=== PATIENT | male | born 1950 | race Caucasian/White ===

== ENCOUNTER 2023-12-26 14:25 | Inpatient (IN) | payer OTHER ==
[~2023-12-26] VITALS: Ht 157.5 cm; Wt 116.1 kg
[2023-12-26 14:39] VITALS: BP 114/74; PULSE 112; RESP 16; TEMP 98; O2SAT 96
[2023-12-26] MEDS: ONDANSETRON 4 MG/2 ML VIAL IVP ONE (15:46)
[2023-12-26] MEDS: fentaNYL citrate 0.05 MG/ML VIAL IVP ONE (15:47)
[2023-12-26] MEDS: NACL 0.9% 1,000 ML IV ONE (15:47)
[2023-12-26 15:56] LABS: BASOPHILS % (AUTO) 0.1 % (0.0-2.0); EOSINOPHILS % (AUTO) 0.2 % (0.0-4.0); HEMATOCRIT 30.3 % (36-52); LYMPHOCYTES # (AUTO) 1.8 K/uL (2.0-11.5); LYMPHOCYTES % (AUTO) 15.4 % (20.5-51.1); MEAN CORPUSCULAR HEMOGLOBIN 25 pg (27-31); MEAN CORPUSCULAR HGB CONC 33 g/dL (33-37); MONOCYTES # (AUTO) 1.2 K/uL (0.8-1.0); NEUTROPHILS # (AUTO) 8.6 K/uL (1.8-7.7); NEUTROPHILS % (AUTO) 74.3 % (42.2-75.2); PLATELET COUNT (AUTO) 378 K/uL (140-450); RED BLOOD CELL COUNT(AUTO) 3.93 MIL/uL (4.20-6.10); RED CELL DISTRIBUTION WIDTH 19.1 % (11.6-13.7); WHITE BLOOD COUNT (AUTO) 11.6 K/uL (4.8-10.8)
[2023-12-26 16:18] LABS: INR 1.07 (0.8-1.2); PROTHROMBIN TIME 11.2 secs (10.8-13.4)
[2023-12-26 16:20] LABS: ANION GAP 13.3 (8-16); CALCIUM 9.1 mg/dL (8.5-10.1); CARBON DIOXIDE 25.3 mmol/L (21-32); CHLORIDE 95 mmol/L (98-107); CREATININE 1.1 mg/dL (0.6-1.3); GLUCOSE 89 mg/dL (74-106); POTASSIUM 3.6 mmol/L (3.5-5.1); SODIUM SERUM 130 mmol/L (136-145); UREA NITROGEN, BLOOD 14 mg/dL (7-18)
[2023-12-26 16:27] LABS: ALANINE AMINOTRANSFERASE 11 U/L (12-78); ALBUMIN 2.8 g/dL (3.4-5.0); ALKALINE PHOSPHATASE 117 U/L (50-136); ASPARTATE AMINOTRANSFERASE 23 U/L (15-37); BILIRUBIN,DIRECT 0.2 mg/dL (0.0-0.3); LIPASE 67 U/L (16-77); TOTAL BILIRUBIN 0.4 mg/dL (0.0-1.0); TOTAL PROTEIN, SERUM 7.3 g/dL (6.4-8.2)
[2023-12-26 17:24] VITALS: O2SAT 96
[2023-12-26 17:38] LABS: APPEARANCE,URINE CLEAR (CLEAR); BILIRUBIN,URINE NEGATIVE (NEGATIVE); BLOOD, URINE NEGATIVE (NEGATIVE); COLOR,URINE YELLOW (YELLOW); LEUKOCYTE ESTERASE ,URINE NEGATIVE (NEGATIVE); NITRITE, URINE NEGATIVE (NEGATIVE); PROTEIN,URINE NEGATIVE (NEGATIVE); UGLUCOSE NEGATIVE (NEGATIVE)
[2023-12-26] MEDS: HYDROmorphone PFS 2 MG/ML SYR IVP ONE ×2 (17:55→19:45)
[2023-12-26] MEDS ORDERED: POTASSIUM CHLORIDE 10 MEQ TABER PO PRN (19:40)
[2023-12-26] MEDS ORDERED: METOCLOPRAMIDE 10 MG/2 ML INJ VIAL IVP PRN (19:40)
[2023-12-26] MEDS ORDERED: MORPHINE SULFATE 4 MG/ML SYR IVP PRN (19:40)
[2023-12-26] MEDS: DEXT 5% /NACL 0.9% 1,000 ML IV SCH (20:01)
[2023-12-26] MEDS ORDERED: OMEP40EC23 PO (21:01)
[2023-12-26] MEDS ORDERED: LAMO100T19 PO (21:01)
[2023-12-26] MEDS ORDERED: ARIP15TA1 PO (21:01)
[2023-12-26] MEDS ORDERED: ASPI-1822 PO (21:01)
[2023-12-26] MEDS ORDERED: CARB1TER9 PO (21:01)
[2023-12-26] MEDS ORDERED: LISI20TA29 PO (21:01)
[2023-12-26] MEDS ORDERED: ATOR40TA PO (21:01)
[2023-12-26] MEDS ORDERED: CLOP300T2 PO (21:01)
[2023-12-26] MEDS ORDERED: FURO-572 PO (21:01)
[2023-12-26] MEDS ORDERED: BUS5 PO (21:01)
[2023-12-26] MEDS ORDERED: AMLO10TA PO (21:01)
[2023-12-26 22:00] VITALS: RESP 14; O2SAT 94
[2023-12-27 00:53] VITALS: RESP 19; O2SAT 90
[2023-12-27] MEDS: ONDANSETRON 4 MG/2 ML VIAL IVP PRN (02:02)
[2023-12-27 04:00] VITALS: BP 133/77; PULSE 91; RESP 17; TEMP 97.9; O2SAT 91
[2023-12-27] MEDS: HYDROcodone/APAP 5/325 MG 1 TAB TAB PO PRN (04:40)
[2023-12-27 06:38] LABS: EOSINOPHILS % (AUTO) 0.4 % (0.0-4.0); HEMATOCRIT 29.2 % (36-52); HEMOGLOBIN 9.7 g/dL (12.0-18.0); LYMPHOCYTES % (AUTO) 17.3 % (20.5-51.1); MEAN CORPUSCULAR HEMOGLOBIN 26 pg (27-31); MEAN CORPUSCULAR HGB CONC 33 g/dL (33-37); MONOCYTES # (AUTO) 1.1 K/uL (0.8-1.0); MONOCYTES % (AUTO) 9.4 % (1.7-9.3); NEUTROPHILS # (AUTO) 8.5 K/uL (1.8-7.7); NEUTROPHILS % (AUTO) 72.9 % (42.2-75.2); PLATELET COUNT (AUTO) 364 K/uL (140-450); RED BLOOD CELL COUNT(AUTO) 3.79 MIL/uL (4.20-6.10); RED CELL DISTRIBUTION WIDTH 18.8 % (11.6-13.7); WHITE BLOOD COUNT (AUTO) 11.7 K/uL (4.8-10.8)
[2023-12-27 07:13] LABS: ANION GAP 12.4 (8-16); CALCIUM 8.3 mg/dL (8.5-10.1); CARBON DIOXIDE 25.2 mmol/L (21-32); CHLORIDE 98 mmol/L (98-107); GLUCOSE 101 mg/dL (74-106); POTASSIUM 3.6 mmol/L (3.5-5.1); SODIUM SERUM 132 mmol/L (136-145); UREA NITROGEN, BLOOD 14 mg/dL (7-18)
[2023-12-27 08:00] VITALS: BP 129/66; PULSE 68; PULSE 96; RESP 18; RESP 20; TEMP 98.7; O2SAT 96; O2SAT 99
[2023-12-27] MEDS: DOCUSATE SODIUM 100 MG GELCAP PO SCH (10:40)
[2023-12-27] MEDS: LORazepam 1 MG TAB PO PRN (15:44)
[2023-12-27 16:00] VITALS: BP 135/75; PULSE 99; RESP 18; TEMP 97.8; O2SAT 98
[2023-12-27 20:00] VITALS: BP 147/79; PULSE 107; PULSE 71; RESP 18; RESP 19; TEMP 97.8; O2SAT 94; O2SAT 98
[2023-12-27] MEDS: MEDS-TO-BEDS MC SCH (20:28)
[2023-12-28 04:00] VITALS: BP 151/76; PULSE 105; RESP 18; TEMP 97.6; O2SAT 94
[2023-12-28 06:41] LABS: BASOPHILS % (AUTO) 0.1 % (0.0-2.0); EOSINOPHILS # (AUTO) 0.2 K/uL (0-0.4); EOSINOPHILS % (AUTO) 1.5 % (0.0-4.0); HEMATOCRIT 29.6 % (36-52); HEMOGLOBIN 9.7 g/dL (12.0-18.0); LYMPHOCYTES # (AUTO) 2.9 K/uL (2.0-11.5); LYMPHOCYTES % (AUTO) 22.7 % (20.5-51.1); MEAN CORPUSCULAR HEMOGLOBIN 25 pg (27-31); MEAN CORPUSCULAR HGB CONC 33 g/dL (33-37); MEAN CORPUSCULAR VOLUME 77.4 fL (80-94); MONOCYTES # (AUTO) 1.6 K/uL (0.8-1.0); MONOCYTES % (AUTO) 12.6 % (1.7-9.3); NEUTROPHILS % (AUTO) 63.1 % (42.2-75.2); PLATELET COUNT (AUTO) 375 K/uL (140-450); RED BLOOD CELL COUNT(AUTO) 3.82 MIL/uL (4.20-6.10); RED CELL DISTRIBUTION WIDTH 18.8 % (11.6-13.7); WHITE BLOOD COUNT (AUTO) 12.7 K/uL (4.8-10.8)
[2023-12-28 06:56] LABS: ANION GAP 11.3 (8-16); CALCIUM 8.1 mg/dL (8.5-10.1); CHLORIDE 100 mmol/L (98-107); CREATININE 0.9 mg/dL (0.6-1.3); GLUCOSE 89 mg/dL (74-106); POTASSIUM 3.3 mmol/L (3.5-5.1); SODIUM SERUM 134 mmol/L (136-145); UREA NITROGEN, BLOOD 12 mg/dL (7-18)
[2023-12-28 07:49] VITALS: PULSE 72; RESP 20; O2SAT 99
[2023-12-28 08:00] VITALS: BP 126/71; PULSE 105; RESP 18; TEMP 97.5; O2SAT 94
[2023-12-28] MEDS: POTASSIUM CHLORIDE 20% 40 MEQ/15 ML UDC PO SCH (11:17)
[2023-12-28 16:00] VITALS: BP 159/83; PULSE 115; RESP 18; TEMP 97.6; O2SAT 94
[2023-12-28 20:00] VITALS: BP 137/77; PULSE 110; PULSE 113; RESP 18; RESP 20; TEMP 97.9; O2SAT 93
[2023-12-29 04:00] VITALS: BP 137/78; PULSE 110; RESP 20; TEMP 97.1; O2SAT 93
[2023-12-29 07:26] LABS: BASOPHILS % (AUTO) 0.1 % (0.0-2.0); EOSINOPHILS # (AUTO) 0.1 K/uL (0-0.4); EOSINOPHILS % (AUTO) 0.9 % (0.0-4.0); HEMATOCRIT 31.3 % (36-52); HEMOGLOBIN 10.3 g/dL (12.0-18.0); LYMPHOCYTES # (AUTO) 3.4 K/uL (2.0-11.5); LYMPHOCYTES % (AUTO) 22.7 % (20.5-51.1); MEAN CORPUSCULAR HEMOGLOBIN 25 pg (27-31); MEAN CORPUSCULAR HGB CONC 33 g/dL (33-37); MEAN CORPUSCULAR VOLUME 77.5 fL (80-94); MONOCYTES # (AUTO) 1.8 K/uL (0.8-1.0); MONOCYTES % (AUTO) 11.9 % (1.7-9.3); NEUTROPHILS # (AUTO) 9.6 K/uL (1.8-7.7); NEUTROPHILS % (AUTO) 64.4 % (42.2-75.2); PLATELET COUNT (AUTO) 394 K/uL (140-450); RED BLOOD CELL COUNT(AUTO) 4.04 MIL/uL (4.20-6.10); RED CELL DISTRIBUTION WIDTH 19.7 % (11.6-13.7)
[2023-12-29 07:38] LABS: ANION GAP 12.3 (8-16); CALCIUM 8.2 mg/dL (8.5-10.1); CARBON DIOXIDE 25.9 mmol/L (21-32); CHLORIDE 102 mmol/L (98-107); CREATININE 0.9 mg/dL (0.6-1.3); GLUCOSE 99 mg/dL (74-106); POTASSIUM 3.2 mmol/L (3.5-5.1); SODIUM SERUM 137 mmol/L (136-145); UREA NITROGEN, BLOOD 11 mg/dL (7-18)
[2023-12-29 08:00] VITALS: BP 137/92; PULSE 111; RESP 20; TEMP 97.3; O2SAT 95
[2023-12-29 12:00] VITALS: BP 134/73; PULSE 101; RESP 18; TEMP 97.5; O2SAT 94
[2023-12-29] MEDS: POTASSIUM CHLORIDE 40 MEQ, LIDOCAINE 1% 25 MG in NACL 0.9% 250 ML IV ONE (14:19)
[2023-12-29 16:00] VITALS: BP 118/82; PULSE 107; RESP 18; TEMP 98.2; O2SAT 96
[2023-12-29] MEDS: KETOROLAC 15 MG/ML VIAL IVP PRN (18:19)
[2023-12-29 20:00] VITALS: BP 121/82; PULSE 118; RESP 16; TEMP 98.4; O2SAT 95
[2023-12-30 04:00] VITALS: BP 139/78; PULSE 120; RESP 20; TEMP 97.6; O2SAT 95
[2023-12-30 04:13] LABS: BASOPHILS # (AUTO) 0.1 K/uL (0.00-0.22); BASOPHILS % (AUTO) 0.5 % (0.0-2.0); EOSINOPHILS # (AUTO) 0.1 K/uL (0-0.4); EOSINOPHILS % (AUTO) 0.8 % (0.0-4.0); HEMATOCRIT 30.6 % (36-52); HEMOGLOBIN 10.1 g/dL (12.0-18.0); LYMPHOCYTES # (AUTO) 2.3 K/uL (2.0-11.5); LYMPHOCYTES % (AUTO) 19.7 % (20.5-51.1); MEAN CORPUSCULAR HEMOGLOBIN 26 pg (27-31); MEAN CORPUSCULAR HGB CONC 33 g/dL (33-37); MEAN CORPUSCULAR VOLUME 77.1 fL (80-94); MONOCYTES # (AUTO) 1.4 K/uL (0.8-1.0); MONOCYTES % (AUTO) 12.2 % (1.7-9.3); NEUTROPHILS # (AUTO) 7.9 K/uL (1.8-7.7); NEUTROPHILS % (AUTO) 66.8 % (42.2-75.2); PLATELET COUNT (AUTO) 421 K/uL (140-450); RED BLOOD CELL COUNT(AUTO) 3.96 MIL/uL (4.20-6.10); RED CELL DISTRIBUTION WIDTH 19.4 % (11.6-13.7); WHITE BLOOD COUNT (AUTO) 11.8 K/uL (4.8-10.8)
[2023-12-30 05:14] LABS: ANION GAP 12.1 (8-16); CALCIUM 8.8 mg/dL (8.5-10.1); CARBON DIOXIDE 26.2 mmol/L (21-32); CHLORIDE 106 mmol/L (98-107); CREATININE 1.2 mg/dL (0.6-1.3); GLUCOSE 113 mg/dL (74-106); POTASSIUM 3.3 mmol/L (3.5-5.1); SODIUM SERUM 141 mmol/L (136-145); UREA NITROGEN, BLOOD 15 mg/dL (7-18)
[2023-12-30] MEDS: ceFAZolin 2,000 MG VIAL ONE ×2 (07:14)
[2023-12-30 08:00] VITALS: BP 128/68; PULSE 105; RESP 19; RESP 20; TEMP 98.8; O2SAT 95
[2023-12-30] MEDS: ACETAMINOPHEN 100 ML IV ONE (08:02)
[2023-12-30] MEDS: fentaNYL citrate 0.05 MG/ML VIAL ONE (08:03)
[2023-12-30] MEDS: CLINDAMYCIN 600 MG/4 ML VIAL ONE (08:06)
[2023-12-30] MEDS: PROPOFOL 200 MG/20 ML VIAL IV ONE ×2 (08:36→09:28)
[2023-12-30] MEDS: ROCURONIUM 50 MG/5 ML VIAL IV ONE ×2 (08:37)
[2023-12-30] MEDS: PHENYLEPHRINE 10 MG/ML VIAL ONE (08:37)
[2023-12-30] MEDS: ONDANSETRON 4 MG/2 ML VIAL ONE ×2 (09:23)
[2023-12-30] MEDS: SUGAMMADEX SODIUM 200 MG/2 ML VIAL IV ONE ×2 (09:28→09:31)
[2023-12-30] MEDS: CLINDAMYCIN 900 MG/6 ML VIAL IV ONE (10:06)
[2023-12-30] MEDS: BUPIVACAINE-MPF 0.25% 30 ML VIAL INJ ONE (10:08)
[2023-12-30] MEDS: LIDOCAINE/EPI 1% 1:100000 20 ML VIAL INJ ONE (10:09)
[2023-12-30 12:00] VITALS: BP 116/62; PULSE 101; RESP 16; TEMP 97.6; O2SAT 92
[2023-12-30 16:00] VITALS: BP 126/72; PULSE 100; RESP 18; TEMP 97.9; O2SAT 97
[2023-12-30] MEDS: HYDROmorphone 1 MG/ML AMP IVP PRN (16:38)
[2023-12-30] MEDS ORDERED: KCL 20 MEQ IN 100 mL PREMIX 100 ML IV SCH (18:00)
[2023-12-30] MEDS ORDERED: POTASSIUM CHLORIDE 20 MEQ IV SCH (18:10)
[2023-12-30] MEDS ORDERED: DEXTROSE 5% IV SCH (18:10)
[2023-12-30] MEDS ORDERED: POTASSIUM CHL 40 MEQ/ D5-1/2NS 250 ML IV SCH (18:20)
[2023-12-30] MEDS ORDERED: KCL 20 MEQ IN 100 mL PREMIX 100 ML IV ONE (18:45)
[2023-12-30] MEDS: POTASSIUM CHLORIDE 40 MEQ, LIDOCAINE MPF 1% 25 MG in NACL 0.9% 250 ML IV SCH (18:51)
[2023-12-30] MEDS: KCL IV ONE (18:51)
[2023-12-30 20:00] VITALS: BP 114/75; PULSE 108; RESP 19; RESP 20; TEMP 96.8; O2SAT 93
[2023-12-31] VITALS: BP 114/76; PULSE 114; RESP 16; TEMP 97; O2SAT 93
[2023-12-31 04:00] VITALS: BP 118/62; PULSE 99; RESP 16; TEMP 97.4; O2SAT 93
[2023-12-31 07:20] LABS: BASOPHILS % (AUTO) 0.1 % (0.0-2.0); EOSINOPHILS # (AUTO) 0.1 K/uL (0-0.4); EOSINOPHILS % (AUTO) 0.8 % (0.0-4.0); HEMATOCRIT 29.9 % (36-52); HEMOGLOBIN 9.7 g/dL (12.0-18.0); LYMPHOCYTES # (AUTO) 3.7 K/uL (2.0-11.5); LYMPHOCYTES % (AUTO) 22.7 % (20.5-51.1); MEAN CORPUSCULAR HEMOGLOBIN 25 pg (27-31); MEAN CORPUSCULAR HGB CONC 32 g/dL (33-37); MEAN CORPUSCULAR VOLUME 77.3 fL (80-94); MONOCYTES # (AUTO) 1.6 K/uL (0.8-1.0); MONOCYTES % (AUTO) 9.8 % (1.7-9.3); NEUTROPHILS # (AUTO) 10.8 K/uL (1.8-7.7); NEUTROPHILS % (AUTO) 66.6 % (42.2-75.2); PLATELET COUNT (AUTO) 393 K/uL (140-450); RED BLOOD CELL COUNT(AUTO) 3.86 MIL/uL (4.20-6.10); RED CELL DISTRIBUTION WIDTH 19.3 % (11.6-13.7); WHITE BLOOD COUNT (AUTO) 16.2 K/uL (4.8-10.8)
[2023-12-31 07:39] LABS: ANION GAP 12.5 (8-16); CALCIUM 8.3 mg/dL (8.5-10.1); CARBON DIOXIDE 25.7 mmol/L (21-32); CHLORIDE 109 mmol/L (98-107); GLUCOSE 109 mg/dL (74-106); POTASSIUM 3.2 mmol/L (3.5-5.1); SODIUM SERUM 144 mmol/L (136-145); UREA NITROGEN, BLOOD 13 mg/dL (7-18)
[2023-12-31 08:00] VITALS: BP 107/69; PULSE 116; RESP 20; TEMP 98.6; O2SAT 95
[2023-12-31] MEDS ORDERED: HYDROcodone/APAP 5/325 MG 1 TAB TAB PO PRN (13:45)
[2023-12-31 16:01] LABS: BASOPHILS # (AUTO) 0.1 K/uL (0.00-0.22); BASOPHILS % (AUTO) 0.4 % (0.0-2.0); EOSINOPHILS # (AUTO) 0.2 K/uL (0-0.4); EOSINOPHILS % (AUTO) 1.3 % (0.0-4.0); HEMATOCRIT 28.6 % (36-52); HEMOGLOBIN 9.5 g/dL (12.0-18.0); LYMPHOCYTES # (AUTO) 2.7 K/uL (2.0-11.5); LYMPHOCYTES % (AUTO) 17.7 % (20.5-51.1); MEAN CORPUSCULAR HEMOGLOBIN 26 pg (27-31); MEAN CORPUSCULAR HGB CONC 33 g/dL (33-37); MEAN CORPUSCULAR VOLUME 77.2 fL (80-94); MONOCYTES # (AUTO) 1.6 K/uL (0.8-1.0); MONOCYTES % (AUTO) 10.4 % (1.7-9.3); NEUTROPHILS # (AUTO) 10.5 K/uL (1.8-7.7); NEUTROPHILS % (AUTO) 70.2 % (42.2-75.2); PLATELET COUNT (AUTO) 407 K/uL (140-450); RED CELL DISTRIBUTION WIDTH 19.4 % (11.6-13.7)
[2023-12-31] MEDS: ACETAMINOPHEN EXTRA STRENGTH 500 MG TAB PO SCH (16:30)
[2023-12-31] MEDS: GABAPENTIN 300 MG CAP PO SCH (18:44)
[2023-12-31] MEDS ORDERED: POTASSIUM CHLORIDE 20% 40 MEQ/15 ML UDC GT PRN (19:35)
[2023-12-31 20:00] VITALS: BP 137/72; PULSE 115; RESP 20; TEMP 98.5; O2SAT 94
[2023-12-31] MEDS ORDERED: POTASSIUM CHLORIDE 10 MEQ TABER PO PRN (20:40)
[2023-12-31] MEDS: ARIPiprazole 10 MG TAB PO SCH (21:34)
[2023-12-31] MEDS: PANTOPRAZOLE 40 MG INJ VIAL IVP SCH (21:42)
[2023-12-31] MEDS: POTASSIUM CHLORIDE 20% 40 MEQ/15 ML UDC PO PRN (23:27)
[2023-12-31] MEDS: TEMAZEPAM 15 MG CAP PO PRN (23:59)
[2024-01-01 04:00] VITALS: BP 134/90; PULSE 104; RESP 20; TEMP 98.6; O2SAT 95
[2024-01-01 07:00] LABS: BASOPHILS % (AUTO) 0.2 % (0.0-2.0); EOSINOPHILS # (AUTO) 0.3 K/uL (0-0.4); EOSINOPHILS % (AUTO) 1.5 % (0.0-4.0); HEMATOCRIT 29.4 % (36-52); HEMOGLOBIN 9.6 g/dL (12.0-18.0); LYMPHOCYTES # (AUTO) 3.6 K/uL (2.0-11.5); LYMPHOCYTES % (AUTO) 20.5 % (20.5-51.1); MEAN CORPUSCULAR HEMOGLOBIN 25 pg (27-31); MEAN CORPUSCULAR HGB CONC 33 g/dL (33-37); MEAN CORPUSCULAR VOLUME 77.6 fL (80-94); MONOCYTES % (AUTO) 11.3 % (1.7-9.3); NEUTROPHILS # (AUTO) 11.6 K/uL (1.8-7.7); NEUTROPHILS % (AUTO) 66.5 % (42.2-75.2); PLATELET COUNT (AUTO) 399 K/uL (140-450); RED BLOOD CELL COUNT(AUTO) 3.79 MIL/uL (4.20-6.10); WHITE BLOOD COUNT (AUTO) 17.5 K/uL (4.8-10.8)
[2024-01-01 07:27] LABS: ANION GAP 13.1 (8-16); CALCIUM 8.8 mg/dL (8.5-10.1); CARBON DIOXIDE 27.2 mmol/L (21-32); CHLORIDE 110 mmol/L (98-107); CREATININE 1.1 mg/dL (0.6-1.3); GLUCOSE 102 mg/dL (74-106); POTASSIUM 3.3 mmol/L (3.5-5.1); SODIUM SERUM 147 mmol/L (136-145); UREA NITROGEN, BLOOD 15 mg/dL (7-18)
[2024-01-01 08:00] VITALS: PULSE 117; RESP 18; O2SAT 94
[2024-01-01 13:23] VITALS: BP 155/77; PULSE 117; RESP 18; TEMP 98; O2SAT 93
[2024-01-01] MEDS ORDERED: KCL 20 MEQ IN 100 mL PREMIX 200 ML IV ONE (17:30)
[2024-01-01] MEDS: ACETAMINOPHEN 325 MG TAB PO PRN (17:54)
[2024-01-01] MEDS: hydrALAZINE 20 MG/ML VIAL IVP PRN (17:55)
[2024-01-01 20:00] VITALS: BP 140/89; PULSE 100; RESP 20; TEMP 98.1; O2SAT 95; O2SAT 96
[2024-01-02 04:00] VITALS: BP 128/86; PULSE 102; RESP 20; TEMP 98; O2SAT 94
[2024-01-02 07:22] LABS: ANION GAP 12.7 (8-16); CALCIUM 8.5 mg/dL (8.5-10.1); CARBON DIOXIDE 26.9 mmol/L (21-32); CHLORIDE 107 mmol/L (98-107); CREATININE 1.3 mg/dL (0.6-1.3); GLUCOSE 96 mg/dL (74-106); POTASSIUM 3.6 mmol/L (3.5-5.1); SODIUM SERUM 143 mmol/L (136-145); UREA NITROGEN, BLOOD 13 mg/dL (7-18)
[2024-01-02 07:37] LABS: BASOPHILS % (AUTO) 0.2 % (0.0-2.0); EOSINOPHILS # (AUTO) 0.3 K/uL (0-0.4); EOSINOPHILS % (AUTO) 1.2 % (0.0-4.0); HEMATOCRIT 30.7 % (36-52); HEMOGLOBIN 9.8 g/dL (12.0-18.0); LYMPHOCYTES # (AUTO) 2.3 K/uL (2.0-11.5); LYMPHOCYTES % (AUTO) 10.7 % (20.5-51.1); MEAN CORPUSCULAR HEMOGLOBIN 25 pg (27-31); MEAN CORPUSCULAR HGB CONC 32 g/dL (33-37); MEAN CORPUSCULAR VOLUME 78.3 fL (80-94); MONOCYTES # (AUTO) 1.3 K/uL (0.8-1.0); MONOCYTES % (AUTO) 6.2 % (1.7-9.3); NEUTROPHILS # (AUTO) 17.8 K/uL (1.8-7.7); NEUTROPHILS % (AUTO) 81.7 % (42.2-75.2); PLATELET COUNT (AUTO) 381 K/uL (140-450); RED BLOOD CELL COUNT(AUTO) 3.93 MIL/uL (4.20-6.10); RED CELL DISTRIBUTION WIDTH 19.4 % (11.6-13.7); WHITE BLOOD COUNT (AUTO) 21.8 K/uL (4.8-10.8)
[2024-01-02 08:00] VITALS: PULSE 123; RESP 20; O2SAT 93
[2024-01-02] MEDS: amLODIPine 5 MG TAB PO SCH (08:44)
[2024-01-02 12:14] VITALS: BP 116/77; PULSE 123; RESP 20; TEMP 99.3; O2SAT 93
[2024-01-02] MEDS ORDERED: ONDANSETRON 4 MG/5 ML ORASYR GT PRN (17:15)
[2024-01-02] MEDS ORDERED: KCL 20 MEQ IN 100 mL PREMIX 200 ML IV PRN (18:30)
[2024-01-02] MEDS ORDERED: TPN PER PHARMACY MC PRN (18:30)
[2024-01-02 20:00] VITALS: BP 103/69; PULSE 120; RESP 19; TEMP 99.3; O2SAT 93; O2SAT 94
[2024-01-03 04:00] VITALS: BP 146/71; PULSE 109; RESP 18; TEMP 98.5; O2SAT 94
[2024-01-03 07:48] LABS: HEMATOCRIT 25.9 % (36-52); HEMOGLOBIN 8.4 g/dL (12.0-18.0); MEAN CORPUSCULAR HEMOGLOBIN 25 pg (27-31); MEAN CORPUSCULAR HGB CONC 33 g/dL (33-37); MEAN CORPUSCULAR VOLUME 77.6 fL (80-94); PLATELET COUNT (AUTO) 298 K/uL (140-450); RED BLOOD CELL COUNT(AUTO) 3.34 MIL/uL (4.20-6.10); RED CELL DISTRIBUTION WIDTH 19.5 % (11.6-13.7); WHITE BLOOD COUNT (AUTO) 23.9 K/uL (4.8-10.8)
[2024-01-03 07:50] LABS: ALANINE AMINOTRANSFERASE 21 U/L (12-78); ALBUMIN 1.9 g/dL (3.4-5.0); ALKALINE PHOSPHATASE 87 U/L (50-136); ANION GAP 14.5 (8-16); ASPARTATE AMINOTRANSFERASE 20 U/L (15-37); CALCIUM 7.6 mg/dL (8.5-10.1); CARBON DIOXIDE 24.6 mmol/L (21-32); CHLORIDE 107 mmol/L (98-107); CHOL/HDL RATIO 1.9 (1-4.5); CHOLESTEROL 72 mg/dL (<200); CREATININE 1.1 mg/dL (0.6-1.3); GLUCOSE 98 mg/dL (74-106); HDL CHOLESTEROL 38 mg/dL (40-60); LDL (CALC) 25 mg/dL (60-100); MAGNESIUM 1.8 mg/dL (1.8-2.4); PHOSPHORUS 3.4 mg/dL (2.5-4.9); POTASSIUM 3.1 mmol/L (3.5-5.1); SODIUM SERUM 143 mmol/L (136-145); TOTAL BILIRUBIN 0.5 mg/dL (0.0-1.0); TOTAL PROTEIN, SERUM 5.8 g/dL (6.4-8.2); TRIGLYCERIDES 47 mg/dL (30-150); UREA NITROGEN, BLOOD 12 mg/dL (7-18)
[2024-01-03 10:15] LABS: ANISOCYTOSIS 1+; HYPOCHROMASIA 1+; LYMPHOCYTES % (MANUAL) 6 % (20-46); MONOCYTES % (MANUAL) 8 % (5-12)
[2024-01-03 10:16] LABS: PLATELET ESTIMATE PLATELET CLUMPS SEEN
[2024-01-03 12:00] VITALS: BP 136/65; PULSE 118; RESP 18; TEMP 98.9; O2SAT 98
[2024-01-03 20:00] VITALS: BP 158/81; PULSE 113; RESP 20; TEMP 98.2; O2SAT 93
[2024-01-03] MEDS ORDERED: INSULIN LISPRO SLIDING SCALE 100 UNITS/ML VIAL SUBQ PRN (20:00)
[2024-01-03] MEDS: BLOOD GLUCOSE MONITORING 1 DEV DEV MC SCH (20:00)
[2024-01-04] MEDS: MULTIVITAMIN IV SCH (00:11)
[2024-01-04] MEDS: DEXTROSE IV SCH (00:11)
[2024-01-04] MEDS: AMINO ACIDS 8.5% IV SCH (00:11)
[2024-01-04 04:00] VITALS: BP 165/77; PULSE 113; RESP 20; TEMP 96.5; O2SAT 93
[2024-01-04 07:58] LABS: ALANINE AMINOTRANSFERASE 21 U/L (12-78); ALBUMIN 1.9 g/dL (3.4-5.0); ALKALINE PHOSPHATASE 94 U/L (50-136); ANION GAP 13.2 (8-16); ASPARTATE AMINOTRANSFERASE 20 U/L (15-37); CALCIUM 7.8 mg/dL (8.5-10.1); CARBON DIOXIDE 22.4 mmol/L (21-32); CHLORIDE 107 mmol/L (98-107); CREATININE 0.9 mg/dL (0.6-1.3); GLUCOSE 115 mg/dL (74-106); MAGNESIUM 2.1 mg/dL (1.8-2.4); POTASSIUM 3.6 mmol/L (3.5-5.1); SODIUM SERUM 139 mmol/L (136-145); TOTAL BILIRUBIN 0.4 mg/dL (0.0-1.0); TOTAL PROTEIN, SERUM 6.1 g/dL (6.4-8.2); UREA NITROGEN, BLOOD 11 mg/dL (7-18)
[2024-01-04 08:00] VITALS: PULSE 61; RESP 18; O2SAT 94
[2024-01-04 18:07] LABS: BASOPHILS # (AUTO) 0.1 K/uL (0.00-0.22); BASOPHILS % (AUTO) 0.5 % (0.0-2.0); EOSINOPHILS # (AUTO) 0.3 K/uL (0-0.4); EOSINOPHILS % (AUTO) 2.1 % (0.0-4.0); HEMATOCRIT 27.4 % (36-52); HEMOGLOBIN 8.9 g/dL (12.0-18.0); LYMPHOCYTES # (AUTO) 2.2 K/uL (2.0-11.5); LYMPHOCYTES % (AUTO) 14.3 % (20.5-51.1); MEAN CORPUSCULAR HEMOGLOBIN 25 pg (27-31); MEAN CORPUSCULAR HGB CONC 33 g/dL (33-37); MEAN CORPUSCULAR VOLUME 77.1 fL (80-94); MONOCYTES # (AUTO) 1.2 K/uL (0.8-1.0); MONOCYTES % (AUTO) 7.9 % (1.7-9.3); NEUTROPHILS # (AUTO) 11.4 K/uL (1.8-7.7); NEUTROPHILS % (AUTO) 75.2 % (42.2-75.2); PLATELET COUNT (AUTO) 316 K/uL (140-450); RED BLOOD CELL COUNT(AUTO) 3.55 MIL/uL (4.20-6.10); RED CELL DISTRIBUTION WIDTH 19.4 % (11.6-13.7); WHITE BLOOD COUNT (AUTO) 15.1 K/uL (4.8-10.8)
[2024-01-04 18:31] LABS: ALANINE AMINOTRANSFERASE 23 U/L (12-78); ALBUMIN 1.9 g/dL (3.4-5.0); ALKALINE PHOSPHATASE 96 U/L (50-136); ANION GAP 12.1 (8-16); ASPARTATE AMINOTRANSFERASE 23 U/L (15-37); CALCIUM 7.8 mg/dL (8.5-10.1); CARBON DIOXIDE 25.5 mmol/L (21-32); CHLORIDE 104 mmol/L (98-107); CREATININE 0.9 mg/dL (0.6-1.3); GLUCOSE 110 mg/dL (74-106); POTASSIUM 3.6 mmol/L (3.5-5.1); SODIUM SERUM 138 mmol/L (136-145); TOTAL BILIRUBIN 0.4 mg/dL (0.0-1.0); TOTAL PROTEIN, SERUM 6.4 g/dL (6.4-8.2); UREA NITROGEN, BLOOD 11 mg/dL (7-18)
[2024-01-04 20:00] VITALS: BP 162/83; PULSE 114; RESP 18; TEMP 97.3; O2SAT 94; O2SAT 95
[2024-01-04] MEDS: MULTIVITAMIN-12 10 ML in DEXTROSE 50% 960 ML, AMINO ACIDS 8.5% 860 ML, FAT EMULSION 20%... IV SCH (22:31)
[2024-01-05 04:00] VITALS: BP 136/71; PULSE 107; RESP 17; TEMP 97.1; O2SAT 95
[2024-01-05 07:03] LABS: BASOPHILS % (AUTO) 0.3 % (0.0-2.0); EOSINOPHILS # (AUTO) 0.3 K/uL (0-0.4); EOSINOPHILS % (AUTO) 2.1 % (0.0-4.0); HEMATOCRIT 26.8 % (36-52); HEMOGLOBIN 8.7 g/dL (12.0-18.0); LYMPHOCYTES # (AUTO) 2.6 K/uL (2.0-11.5); LYMPHOCYTES % (AUTO) 19.3 % (20.5-51.1); MEAN CORPUSCULAR HEMOGLOBIN 25 pg (27-31); MEAN CORPUSCULAR HGB CONC 33 g/dL (33-37); MEAN CORPUSCULAR VOLUME 77.8 fL (80-94); MONOCYTES # (AUTO) 1.2 K/uL (0.8-1.0); MONOCYTES % (AUTO) 9.1 % (1.7-9.3); NEUTROPHILS # (AUTO) 9.4 K/uL (1.8-7.7); NEUTROPHILS % (AUTO) 69.2 % (42.2-75.2); PLATELET COUNT (AUTO) 318 K/uL (140-450); RED BLOOD CELL COUNT(AUTO) 3.45 MIL/uL (4.20-6.10); RED CELL DISTRIBUTION WIDTH 19.5 % (11.6-13.7); WHITE BLOOD COUNT (AUTO) 13.6 K/uL (4.8-10.8)
[2024-01-05 07:31] LABS: ALANINE AMINOTRANSFERASE 20 U/L (12-78); ALBUMIN 1.9 g/dL (3.4-5.0); ALKALINE PHOSPHATASE 94 U/L (50-136); ANION GAP 11.4 (8-16); ASPARTATE AMINOTRANSFERASE 19 U/L (15-37); CARBON DIOXIDE 25.4 mmol/L (21-32); CHLORIDE 104 mmol/L (98-107); GLUCOSE 121 mg/dL (74-106); MAGNESIUM 2.3 mg/dL (1.8-2.4); PHOSPHORUS 2.2 mg/dL (2.5-4.9); POTASSIUM 3.8 mmol/L (3.5-5.1); SODIUM SERUM 137 mmol/L (136-145); TOTAL BILIRUBIN 0.3 mg/dL (0.0-1.0); TOTAL PROTEIN, SERUM 6.4 g/dL (6.4-8.2); UREA NITROGEN, BLOOD 12 mg/dL (7-18)
[2024-01-05 08:00] VITALS: PULSE 101; RESP 18; O2SAT 94; O2SAT 96
[2024-01-05 12:00] VITALS: BP 136/71; PULSE 101; RESP 18; TEMP 97.1; O2SAT 96
[2024-01-05 15:01] LABS: APPEARANCE,URINE SLIGHTLY CLOUDY (CLEAR); BILIRUBIN,URINE NEGATIVE (NEGATIVE); BLOOD, URINE NEGATIVE (NEGATIVE); COLOR,URINE YELLOW (YELLOW); LEUKOCYTE ESTERASE ,URINE 1+ (NEGATIVE); NITRITE, URINE POSITIVE (NEGATIVE); PROTEIN,URINE NEGATIVE (NEGATIVE); UGLUCOSE NEGATIVE (NEGATIVE)
[2024-01-05 15:02] LABS: RBC,URINE 0 /HPF (0-5)
[2024-01-05 15:03] LABS: BACTERIA,URINE 3+ /HPF (None Seen); MUCUS,URINE None Seen /LPF (None Seen); SQUAMOUS EPITHELIAL CELL,UR 4-10 (MOD) /LPF (0-3 (FEW))
[2024-01-05 20:00] VITALS: BP 116/72; PULSE 116; RESP 19; TEMP 97.6; O2SAT 93; O2SAT 96
[2024-01-05] MEDS: LORazepam 1 MG TAB PO PRN (21:16)
[2024-01-06 04:00] VITALS: BP 128/71; PULSE 116; RESP 19; TEMP 97.6; O2SAT 95
[2024-01-06 07:35] LABS: ALANINE AMINOTRANSFERASE 22 U/L (12-78); ALKALINE PHOSPHATASE 113 U/L (50-136); ANION GAP 12.7 (8-16); ASPARTATE AMINOTRANSFERASE 22 U/L (15-37); CARBON DIOXIDE 24.6 mmol/L (21-32); CHLORIDE 101 mmol/L (98-107); GLUCOSE 89 mg/dL (74-106); MAGNESIUM 2.2 mg/dL (1.8-2.4); PHOSPHORUS 2.6 mg/dL (2.5-4.9); POTASSIUM 4.3 mmol/L (3.5-5.1); SODIUM SERUM 134 mmol/L (136-145); TOTAL BILIRUBIN 0.3 mg/dL (0.0-1.0); TOTAL PROTEIN, SERUM 6.6 g/dL (6.4-8.2); UREA NITROGEN, BLOOD 12 mg/dL (7-18)
[2024-01-06 08:00] VITALS: BP 111/72; PULSE 110; RESP 18; TEMP 97.9; O2SAT 95
[2024-01-06 08:34] VITALS: PULSE 110; RESP 20; O2SAT 99
[2024-01-06] MEDS: PANTOPRAZOLE 40 MG INJ VIAL IVP SCH (10:55)
[2024-01-06 16:00] VITALS: BP 120/69; PULSE 112; RESP 18; TEMP 97.4; O2SAT 95
[2024-01-06] MEDS: levoFLOXacin 500 MG TAB PO SCH (17:29)
[2024-01-06 20:00] VITALS: PULSE 102; RESP 19; O2SAT 96
[2024-01-07 04:00] VITALS: BP 124/86; PULSE 114; RESP 20; TEMP 97.6; O2SAT 96
[2024-01-07 07:17] LABS: ALANINE AMINOTRANSFERASE 22 U/L (12-78); ALBUMIN 2.1 g/dL (3.4-5.0); ALKALINE PHOSPHATASE 107 U/L (50-136); ANION GAP 11.5 (8-16); ASPARTATE AMINOTRANSFERASE 19 U/L (15-37); CALCIUM 8.1 mg/dL (8.5-10.1); CARBON DIOXIDE 24.5 mmol/L (21-32); CHLORIDE 101 mmol/L (98-107); GLUCOSE 121 mg/dL (74-106); MAGNESIUM 2.1 mg/dL (1.8-2.4); PHOSPHORUS 2.8 mg/dL (2.5-4.9); SODIUM SERUM 133 mmol/L (136-145); TOTAL BILIRUBIN 0.2 mg/dL (0.0-1.0); TOTAL PROTEIN, SERUM 6.8 g/dL (6.4-8.2); UREA NITROGEN, BLOOD 9 mg/dL (7-18)
[2024-01-07 08:00] VITALS: BP 122/70; PULSE 118; RESP 20; TEMP 97.4; O2SAT 95
[2024-01-07] MEDS ORDERED: LEVO750T75 PO (16:56)
[2024-01-07 20:00] VITALS: BP 139/80; PULSE 119; RESP 20; TEMP 98.4; O2SAT 98
== END 2024-01-07 22:00 | DRG 853 ==
LOC: MED 14:25 → MMU 19:39 → MTU 22:46
PROVIDERS: ADMIT Student in an Organized Health Care Education/Training Program; ATTEND Student in an Organized Health Care Education/Training Program
PROC: 0DNU4ZZ Release Omentum, Percutaneous Endoscopic Approach (ICD-10-PCS; 2023-12-30)
PROC: 0DJD4ZZ Inspection of Lower Intestinal Tract, Percutaneous Endoscopic Approach (ICD-10-PCS; 2023-12-30)
PROC: 0DNW4ZZ Release Peritoneum, Percutaneous Endoscopic Approach (ICD-10-PCS; principal; 2023-12-30 07:30)
DX: A41.9 Sepsis, unspecified organism (principal); E43 Unspecified severe protein-calorie malnutrition; K56.50 Intestinal adhesions [bands], unspecified as to partial versus complete obstruction; K91.89 Other postprocedural complications and disorders of digestive system; Z68.42 Body mass index [BMI] 45.0-49.9, adult; K56.7 Ileus, unspecified; R73.9 Hyperglycemia, unspecified; F31.9 Bipolar disorder, unspecified; K59.00 Constipation, unspecified; D72.829 Elevated white blood cell count, unspecified; F20.9 Schizophrenia, unspecified; I10 Essential (primary) hypertension; Z88.5 Allergy status to narcotic agent; Z88.0 Allergy status to penicillin; Z79.899 Other long term (current) drug therapy
CPT/HCPCS: 36415; 71045; 74022; 74250; 80048; 80053; 80076; 81001; 81003; 82948; 83690; 83735; 84100; 84484; 85025; 85610; 86886; 86900; 86901; 87040; 87081; 87086; 87186; 93005; 93970; 96361; 96374; 96375; 96376; 97110; 97112; 97163-GP; 97530; 99291; A9153; C9113; J0360; J1170; J1644; J1885; J2001; J2270; J2370; J2405; J2704; J3010; J3480; J3490; J7030; J7120; Q0092; Q9967

== ENCOUNTER 2024-01-16 12:13 | Inpatient (IN) | payer OTHER ==
[~2024-01-16] VITALS: Ht 170.2 cm; Wt 106.6 kg
[~2024-01-16 12:13] MED LIST: AMLO10TA PO; ARIP15TA1 PO; ASPI-1822 PO; ATOR40TA PO; BUS5 PO; CARB1TER9 PO; CLOP300T2 PO; FURO-572 PO; LAMO100T19 PO; LEVO750T75 PO; LISI20TA29 PO; OMEP40EC23 PO
[2024-01-16 12:37] VITALS: BP 119/61; PULSE 105; RESP 18; TEMP 97.6; O2SAT 95
[2024-01-16 14:10] LABS: ANION GAP 12.8 (8-16); BASOPHILS # (AUTO) 0.1 K/uL (0.00-0.22); BASOPHILS % (AUTO) 0.6 % (0.0-2.0); CALCIUM 8.6 mg/dL (8.5-10.1); CARBON DIOXIDE 24.8 mmol/L (21-32); CHLORIDE 100 mmol/L (98-107); CREATININE 1.3 mg/dL (0.6-1.3); EOSINOPHILS # (AUTO) 0.2 K/uL (0-0.4); EOSINOPHILS % (AUTO) 1.6 % (0.0-4.0); GLUCOSE 83 mg/dL (74-106); HEMATOCRIT 27.4 % (36-52); HEMOGLOBIN 8.8 g/dL (12.0-18.0); LYMPHOCYTES # (AUTO) 2.8 K/uL (2.0-11.5); LYMPHOCYTES % (AUTO) 28.1 % (20.5-51.1); MEAN CORPUSCULAR HEMOGLOBIN 25 pg (27-31); MEAN CORPUSCULAR HGB CONC 32 g/dL (33-37); MEAN CORPUSCULAR VOLUME 77.8 fL (80-94); MONOCYTES % (AUTO) 9.5 % (1.7-9.3); NEUTROPHILS % (AUTO) 60.2 % (42.2-75.2); PLATELET COUNT (AUTO) 671 K/uL (140-450); POTASSIUM 3.6 mmol/L (3.5-5.1); RED BLOOD CELL COUNT(AUTO) 3.52 MIL/uL (4.20-6.10); SODIUM SERUM 134 mmol/L (136-145); UREA NITROGEN, BLOOD 8 mg/dL (7-18)
[2024-01-16 14:17] LABS: ALBUMIN 2.8 g/dL (3.4-5.0); BILIRUBIN,DIRECT 0.1 mg/dL (0.0-0.3); TOTAL BILIRUBIN 0.3 mg/dL (0.0-1.0); TOTAL PROTEIN, SERUM 7.2 g/dL (6.4-8.2)
[2024-01-16] MEDS ORDERED: ACET-5629 PO (14:40)
[2024-01-16] MEDS ORDERED: SENN-72 PO (14:40)
[2024-01-16] MEDS ORDERED: DOCU-299 PO (14:40)
[2024-01-16] MEDS ORDERED: BUSP15TA4 PO (14:40)
[2024-01-16] MEDS: ONDANSETRON 4 MG/2 ML VIAL IVP ONE (14:42)
[2024-01-16] MEDS: LORazepam 2 MG/ML VIAL IVP ONE (15:27)
[2024-01-16] MEDS: NACL 0.9% 1,000 ML IV ONE (15:29)
[2024-01-16] MEDS ORDERED: MAG SULF 2000 MG/WATER PREMIX 50 ML IV PRN (15:40)
[2024-01-16] MEDS ORDERED: POLYETHYLENE GLYCOL 17 GM/PKT PO PRN (15:40)
[2024-01-16] MEDS ORDERED: MELATONIN 3 MG TAB PO PRN (15:40)
[2024-01-16] MEDS ORDERED: ONDANSETRON 4 MG/2 ML VIAL IVP PRN (15:40)
[2024-01-16] MEDS ORDERED: OLANZapine 10 MG VIAL IM PRN (15:45)
[2024-01-16] MEDS ORDERED: hydrALAZINE 20 MG/ML VIAL IVP PRN (15:50)
[2024-01-16] MEDS: DEXT 5% / NACL 0.45% 1,000 ML IV SCH (17:03)
[2024-01-16 20:38] VITALS: BP 119/73; PULSE 124; RESP 20; TEMP 98.7; O2SAT 95
[2024-01-17] VITALS: BP 124/77; PULSE 133; RESP 18; TEMP 98; O2SAT 95
[2024-01-17 04:00] VITALS: BP 125/69; PULSE 108; PULSE 133; RESP 18; TEMP 96.7; O2SAT 96
[2024-01-17 07:26] LABS: BASOPHILS % (AUTO) 0.5 % (0.0-2.0); EOSINOPHILS # (AUTO) 0.3 K/uL (0-0.4); EOSINOPHILS % (AUTO) 2.7 % (0.0-4.0); HEMATOCRIT 25.3 % (36-52); HEMOGLOBIN 8.5 g/dL (12.0-18.0); LYMPHOCYTES # (AUTO) 3.1 K/uL (2.0-11.5); LYMPHOCYTES % (AUTO) 33.2 % (20.5-51.1); MEAN CORPUSCULAR HEMOGLOBIN 26 pg (27-31); MEAN CORPUSCULAR HGB CONC 34 g/dL (33-37); MEAN CORPUSCULAR VOLUME 77.3 fL (80-94); MONOCYTES % (AUTO) 10.6 % (1.7-9.3); PLATELET COUNT (AUTO) 600 K/uL (140-450); RED BLOOD CELL COUNT(AUTO) 3.27 MIL/uL (4.20-6.10); WHITE BLOOD COUNT (AUTO) 9.4 K/uL (4.8-10.8)
[2024-01-17 07:48] LABS: ALANINE AMINOTRANSFERASE 20 U/L (12-78); ALBUMIN 2.4 g/dL (3.4-5.0); ALKALINE PHOSPHATASE 94 U/L (50-136); ANION GAP 12.9 (8-16); ASPARTATE AMINOTRANSFERASE 21 U/L (15-37); CALCIUM 7.8 mg/dL (8.5-10.1); CARBON DIOXIDE 23.5 mmol/L (21-32); CHLORIDE 101 mmol/L (98-107); CREATININE 1.1 mg/dL (0.6-1.3); GLUCOSE 87 mg/dL (74-106); MAGNESIUM 1.9 mg/dL (1.8-2.4); PHOSPHORUS 3.7 mg/dL (2.5-4.9); POTASSIUM 3.4 mmol/L (3.5-5.1); SODIUM SERUM 134 mmol/L (136-145); TOTAL BILIRUBIN 0.3 mg/dL (0.0-1.0); TOTAL PROTEIN, SERUM 6.5 g/dL (6.4-8.2); UREA NITROGEN, BLOOD 6 mg/dL (7-18)
[2024-01-17 08:00] VITALS: BP 114/67; PULSE 108; PULSE 110; PULSE 114; RESP 18; TEMP 96.2; O2SAT 96
[2024-01-17] MEDS: PANTOPRAZOLE 40 MG INJ VIAL IVP SCH (09:01)
[2024-01-17 12:59] VITALS: BP 110/58; PULSE 107; PULSE 114; RESP 18; TEMP 97.6; O2SAT 96
[2024-01-17] MEDS: LORazepam 2 MG/ML VIAL IVP PRN (14:31)
[2024-01-17 16:00] VITALS: BP 123/71; PULSE 108; PULSE 111; RESP 18; TEMP 97.8; O2SAT 99
[2024-01-17] MEDS: KCL 20 MEQ IN 100 mL PREMIX 200 ML IV PRN (17:45)
[2024-01-17 20:00] VITALS: BP 102/66; PULSE 109; PULSE 114; RESP 17; TEMP 97.5; O2SAT 99
[2024-01-18] VITALS (8 sets, daily range): BP systolic 127–152; BP diastolic 58–98; PULSE 86–118; RESP 17–19; TEMP 96.6–97.6; O2SAT 94–100
[2024-01-18 07:00] LABS: BASOPHILS # (AUTO) 0.1 K/uL (0.00-0.22); BASOPHILS % (AUTO) 0.7 % (0.0-2.0); EOSINOPHILS # (AUTO) 0.3 K/uL (0-0.4); EOSINOPHILS % (AUTO) 3.8 % (0.0-4.0); HEMOGLOBIN 8.8 g/dL (12.0-18.0); LYMPHOCYTES # (AUTO) 2.8 K/uL (2.0-11.5); LYMPHOCYTES % (AUTO) 31.8 % (20.5-51.1); MEAN CORPUSCULAR HEMOGLOBIN 26 pg (27-31); MEAN CORPUSCULAR HGB CONC 34 g/dL (33-37); MEAN CORPUSCULAR VOLUME 77.8 fL (80-94); MONOCYTES # (AUTO) 1.1 K/uL (0.8-1.0); NEUTROPHILS # (AUTO) 4.5 K/uL (1.8-7.7); NEUTROPHILS % (AUTO) 51.7 % (42.2-75.2); PLATELET COUNT (AUTO) 595 K/uL (140-450); RED BLOOD CELL COUNT(AUTO) 3.34 MIL/uL (4.20-6.10); WHITE BLOOD COUNT (AUTO) 8.8 K/uL (4.8-10.8)
[2024-01-18 07:36] LABS: ALANINE AMINOTRANSFERASE 22 U/L (12-78); ALBUMIN 2.6 g/dL (3.4-5.0); ALKALINE PHOSPHATASE 94 U/L (50-136); ANION GAP 14.1 (8-16); ASPARTATE AMINOTRANSFERASE 24 U/L (15-37); CALCIUM 8.5 mg/dL (8.5-10.1); CARBON DIOXIDE 23.6 mmol/L (21-32); CHLORIDE 102 mmol/L (98-107); CREATININE 1.1 mg/dL (0.6-1.3); GLUCOSE 86 mg/dL (74-106); MAGNESIUM 2.1 mg/dL (1.8-2.4); POTASSIUM 3.7 mmol/L (3.5-5.1); SODIUM SERUM 136 mmol/L (136-145); TOTAL BILIRUBIN 0.3 mg/dL (0.0-1.0); TOTAL PROTEIN, SERUM 6.6 g/dL (6.4-8.2); UREA NITROGEN, BLOOD 8 mg/dL (7-18)
[2024-01-18] MEDS ORDERED: LEVODOPA PO SCH (13:00)
[2024-01-18] MEDS ORDERED: BUSPIRONE HCL 15 MG PO SCH (13:00)
[2024-01-18] MEDS ORDERED: CARBIDOPA PO SCH (13:00)
[2024-01-18] MEDS: ARIPiprazole 10 MG TAB PO SCH (14:29)
[2024-01-18] MEDS: amLODIPine 5 MG TAB PO SCH (14:29)
[2024-01-18] MEDS: busPIRone 5 MG TAB PO SCH (14:29)
[2024-01-18] MEDS: ATORVASTATIN 20 MG TAB PO SCH (20:21)
[2024-01-18] MEDS: lisinopriL 20 MG TAB PO SCH (20:22)
[2024-01-19] VITALS (7 sets, daily range): BP systolic 105–127; BP diastolic 54–72; PULSE 101–132; RESP 18–20; TEMP 97.5–98.9; O2SAT 95–98
[2024-01-19] MEDS: ACETAMINOPHEN 325 MG TAB PO PRN (06:11)
[2024-01-19 07:35] LABS: BASOPHILS # (AUTO) 0.1 K/uL (0.00-0.22); BASOPHILS % (AUTO) 0.5 % (0.0-2.0); EOSINOPHILS # (AUTO) 0.3 K/uL (0-0.4); EOSINOPHILS % (AUTO) 3.3 % (0.0-4.0); HEMATOCRIT 26.6 % (36-52); HEMOGLOBIN 8.8 g/dL (12.0-18.0); LYMPHOCYTES # (AUTO) 2.9 K/uL (2.0-11.5); LYMPHOCYTES % (AUTO) 28.8 % (20.5-51.1); MEAN CORPUSCULAR HEMOGLOBIN 26 pg (27-31); MEAN CORPUSCULAR HGB CONC 33 g/dL (33-37); MEAN CORPUSCULAR VOLUME 77.5 fL (80-94); MONOCYTES % (AUTO) 10.4 % (1.7-9.3); NEUTROPHILS # (AUTO) 5.8 K/uL (1.8-7.7); PLATELET COUNT (AUTO) 539 K/uL (140-450); RED BLOOD CELL COUNT(AUTO) 3.43 MIL/uL (4.20-6.10); RED CELL DISTRIBUTION WIDTH 20.6 % (11.6-13.7); WHITE BLOOD COUNT (AUTO) 10.1 K/uL (4.8-10.8)
[2024-01-19 08:13] LABS: ALANINE AMINOTRANSFERASE 26 U/L (12-78); ALBUMIN 2.7 g/dL (3.4-5.0); ALKALINE PHOSPHATASE 94 U/L (50-136); ANION GAP 12.4 (8-16); ASPARTATE AMINOTRANSFERASE 24 U/L (15-37); CALCIUM 8.2 mg/dL (8.5-10.1); CARBON DIOXIDE 25.1 mmol/L (21-32); CHLORIDE 102 mmol/L (98-107); CREATININE 1.1 mg/dL (0.6-1.3); GLUCOSE 86 mg/dL (74-106); PHOSPHORUS 2.9 mg/dL (2.5-4.9); POTASSIUM 3.5 mmol/L (3.5-5.1); SODIUM SERUM 136 mmol/L (136-145); TOTAL BILIRUBIN 0.4 mg/dL (0.0-1.0); TOTAL PROTEIN, SERUM 6.6 g/dL (6.4-8.2); UREA NITROGEN, BLOOD 6 mg/dL (7-18)
[2024-01-19] MEDS: PANTOPRAZOLE 40 MG INJ VIAL IVP SCH (08:39)
[2024-01-19] MEDS: FUROSEMIDE 20 MG TAB PO SCH (08:41)
[2024-01-19] MEDS ORDERED: LAMOTRIGINE PO SCH (09:00)
[2024-01-19] MEDS ORDERED: FOAM DRESSING TP PRN (09:50)
[2024-01-19] MEDS ORDERED: HYDRAGUARD CREAM TP PRN (09:50)
[2024-01-19] MEDS: FOAM DRESSING TP SCH (12:11)
[2024-01-19] MEDS: HYDRAGUARD CREAM TP SCH (12:11)
[2024-01-20 04:00] VITALS: BP 112/53; PULSE 103; RESP 20; TEMP 96.9; O2SAT 97
[2024-01-20 08:00] VITALS: BP 108/62; PULSE 107; RESP 18; RESP 20; TEMP 97.9; O2SAT 96; O2SAT 98
[2024-01-20] MEDS: ECOTRIN 81 MG TABEC PO SCH (08:35)
[2024-01-20] MEDS ORDERED: MELA3TAB21 PO (11:14)
== END 2024-01-20 16:00 | DRG 394 ==
LOC: MED 12:13 → MTU 15:01
PROVIDERS: ADMIT Family Medicine; ATTEND Family Medicine
DX: K43.6 Other and unspecified ventral hernia with obstruction, without gangrene (principal); E44.0 Moderate protein-calorie malnutrition; R65.10 Systemic inflammatory response syndrome (SIRS) of non-infectious origin without acute organ dysfunction; K91.31 Postprocedural partial intestinal obstruction; D75.839 Thrombocytosis, unspecified; G40.909 Epilepsy, unspecified, not intractable, without status epilepticus; F20.9 Schizophrenia, unspecified; F31.9 Bipolar disorder, unspecified; I10 Essential (primary) hypertension; G20.A1 Parkinson's disease without dyskinesia, without mention of fluctuations; D50.9 Iron deficiency anemia, unspecified; E78.5 Hyperlipidemia, unspecified; Z79.899 Other long term (current) drug therapy; Z88.0 Allergy status to penicillin; Z88.8 Allergy status to other drugs, medicaments and biological substances; Z68.36 Body mass index [BMI] 36.0-36.9, adult
CPT/HCPCS: 36415; 74018; 74250; 80048; 80053; 80076; 83605; 83690; 83735; 84100; 85025; 87081; 96361; 96374; 96375; 99285; C9113; J1644; J2060; J2405; J3480; Q0092; Q9967